=== PATIENT | female | born 1980 | race Caucasian/White ===

== ENCOUNTER 2019-10-13 20:59 | Emergency (ER) | payer MEDICAID, OTHER ==
[~2019-10-13] VITALS: Ht 152.4 cm; Wt 81.6 kg
[2019-10-13 21:05] VITALS: BP 136/80
[2019-10-13] MEDS ORDERED: LORazepam 2 MG/ML VIAL IM ONE (21:30)
[2019-10-13 22:20] VITALS: BP 120/71
== END 2019-10-13 22:21 | disposition home or self-care (01) ==
LOC: MED 20:59
DX: F41.1 Generalized anxiety disorder (principal); I10 Essential (primary) hypertension
CPT/HCPCS: 93005; 96372; 99283; J2060

== ENCOUNTER 2019-11-07 22:02 | Emergency (ER) | payer OTHER ==
[~2019-11-07] VITALS: Ht 152.4 cm; Wt 83.9 kg
[2019-11-07 22:13] VITALS: BP 114/66
--- NOTE | 2019-11-07 22:20 | NUR ---
39 Y/O FEMALE PRESENTS TO ER WITH C/O LEFT SIDE THROAT AND EAR PAIN X 2DAYS, 8/10 PAIN. DENIES COUGH, N/V/D, SOB, HEADACHE, AFEBRILE. DENIES PHLEGM/SPUTUM EXPULSION/ OR PRODUCTION. LMP 11/02/19. VSS, R/R EQUAL, AND UNLABORED. SIDE RAIL X1, BED IN LOW POSITION, WILL CONTINUE TO MONITOR. HTN NKDA
--- NOTE | 2019-11-07 22:35 | NUR ---
PT TAKEN TO BED 12
[2019-11-07] MEDS ORDERED: ACETAMINOPHEN EXTRA STRENGTH 500 MG TAB PO ONE (22:50)
[2019-11-07 23:30] LABS: APPEARANCE,URINE CLEAR (CLEAR); BILIRUBIN,URINE NEGATIVE (NEGATIVE); BLOOD, URINE NEGATIVE (NEGATIVE); COLOR,URINE YELLOW (YELLOW); LEUKOCYTE ESTERASE ,URINE NEGATIVE (NEGATIVE); NITRITE, URINE NEGATIVE (NEGATIVE); UGLUCOSE NEGATIVE (NEGATIVE)
--- NOTE | 2019-11-07 23:42 | NUR ---
Dr. Thomas examining patient.
[2019-11-08 00:20] VITALS: BP 120/62
--- NOTE | 2019-11-08 00:20 | NUR ---
Patient discharged with v/s stable. Written and verbal after care instructions given and explained. Patient alert, oriented and verbalized understanding of instructions. Ambulatory with steady gait. All questions addressed prior to discharge. ID band removed. Patient advised to follow up with PMD. Rx of PREDNISONE, ATIVAN, AMLODIPINE given. Patient educated on indication of medication including possible reaction and side effects. Opportunity to ask questions provided and answered.
== END 2019-11-08 00:20 | disposition home or self-care (01) ==
LOC: MED 22:02
DX: J03.90 Acute tonsillitis, unspecified (principal); M54.6 Pain in thoracic spine; I10 Essential (primary) hypertension
CPT/HCPCS: 81003; 81025; 87081; 99283

== ENCOUNTER 2019-11-23 19:16 | Emergency (ER) | payer OTHER ==
[~2019-11-23] VITALS: Ht 152.4 cm; Wt 82.6 kg
[2019-11-23 19:22] VITALS: BP 124/65
--- NOTE | 2019-11-23 19:28 | NUR ---
AMBULATED TO BED 6 WITH STEADY GAIT.
--- NOTE | 2019-11-23 19:52 | NUR ---
Pt to ED 06 with c/o nonradiating, substernal chest pain. Pt attached to monitor with NSR noted, ED MD at bedside, EKG complete. Pt AAOx4, lungs CTA, ABD soft nontender with normoactive bowel sounds x 4, pt denies any N/V/D at this time. Skin warm, clean and dry. Will continue to monitor.
[2019-11-23 20:21] LABS: BASOPHILS % (AUTO) 0.6 % (0.0-2.0); EOSINOPHILS % (AUTO) 26.2 % (0.0-4.0); HEMATOCRIT 37.2 % (36-48); HEMOGLOBIN 12.8 g/dL (12.0-16.0); LYMPHOCYTES % (AUTO) 25.5 % (20.5-51.1); MEAN CORPUSCULAR HEMOGLOBIN 32 pg (27-31); MEAN CORPUSCULAR HGB CONC 34 g/dL (33-37); MEAN CORPUSCULAR VOLUME 93.6 fL (80-94); MONOCYTES # (AUTO) 0.5 K/uL (0.8-1.0); MONOCYTES % (AUTO) 6.1 % (1.7-9.3); NEUTROPHILS # (AUTO) 3.2 K/uL (1.8-7.7); NEUTROPHILS % (AUTO) 41.6 % (42.2-75.2); PLATELET COUNT (AUTO) 169 K/uL (140-450); RED BLOOD CELL COUNT(AUTO) 3.98 MIL/uL (4.20-5.40); RED CELL DISTRIBUTION WIDTH 12.2 % (11.6-13.7); WHITE BLOOD COUNT (AUTO) 7.8 K/uL (4.8-10.8)
[2019-11-23 20:34] LABS: ALBUMIN 3.6 g/dL (3.4-5.0); ANION GAP 13.1 (8-16); CARBON DIOXIDE 27.3 mmol/L (21-32); CREATININE 0.7 mg/dL (0.6-1.3); POTASSIUM 3.4 mmol/L (3.5-5.1); TOTAL BILIRUBIN 0.9 mg/dL (0.0-1.0)
[2019-11-23 21:54] VITALS: BP 132/56
== END 2019-11-23 21:45 | disposition home or self-care (01) ==
LOC: MED 19:16
DX: R07.89 Other chest pain (principal)
CPT/HCPCS: 36415; 71045; 80053; 83690; 83880; 84484; 85025; 93005; 99285

== ENCOUNTER 2019-12-15 16:01 | Emergency (ER) | payer OTHER ==
[~2019-12-15] VITALS: Ht 152.4 cm; Wt 80.3 kg
[2019-12-15 16:02] VITALS: BP 124/88
--- NOTE | 2019-12-15 16:11 | NUR ---
PTIENT AMBULATED TO BED 6.
--- NOTE | 2019-12-15 16:24 | NUR ---
TERESA MCGOWAN EVALUATING PT AT BEDSIDE.
[2019-12-15] MEDS ORDERED: LORazepam 2 MG/ML VIAL IM ONE (16:35)
--- NOTE | 2019-12-15 16:54 | NUR ---
39 Y/O FEMALE C/O CHEST PAIN, BILAT ARM NUMBNESS, ANXIETY X4 DAYS. PT HAS BEEN TAKING CLONAZEPAM 1MG EVERY NIGHT, BUT IS STILL VERY ANXIOUS. CHEST PAIN IS A PRESSURE/ HEAVINESS 5/10 PAIN. DENIES ANY SOB/ COUGH/ FEVER/ CHILLS. PMH: HTN, ANXIETY PMH
[2019-12-15 17:21] VITALS: BP 124/88
--- NOTE | 2019-12-15 17:21 | NUR ---
Patient discharged with v/s stable. Written and verbal after care instructions given and explained. Patient alert, oriented and verbalized understanding of instructions. Ambulatory with steady gait. All questions addressed prior to discharge. ID band removed. Patient advised to follow up with PMD. Rx of BACTRIM, HYDROXYZINE HYDROCHLORIDE given. Patient educated on indication of medication including possible reaction and side effects. Opportunity to ask questions provided and answered.
== END 2019-12-15 17:21 | disposition home or self-care (01) ==
LOC: MED 16:01
DX: F41.9 Anxiety disorder, unspecified (principal); N39.0 Urinary tract infection, site not specified; I10 Essential (primary) hypertension; Z98.890 Other specified postprocedural states
CPT/HCPCS: 81002; 81025; 93005; 96372; 99283; J2060

== ENCOUNTER 2019-12-20 17:27 | Emergency (ER) | payer OTHER ==
[~2019-12-20] VITALS: Ht 152.4 cm; Wt 81.2 kg
[2019-12-20 17:34] VITALS: BP 141/87
--- NOTE | 2019-12-20 18:15 | NUR ---
C/O ANXIETY X 4 DAYS. PT REPORTS TAKING TAKING LORAZEPAM AND ATARAX BUT ANXIETY HAS BEEN WORSENING. VS STABLE. PT AMBULATORY WITH STEADY GAIT.
[2019-12-20] MEDS ORDERED: LORazepam 2 MG/ML VIAL IM ONE (18:20)
--- NOTE | 2019-12-20 18:27 | NUR ---
ATIVAN IM ADMINISTERED. PT TOLERATED WELL
[2019-12-20 19:50] VITALS: BP 148/94
== END 2019-12-20 19:50 | disposition home or self-care (01) ==
LOC: MED 17:27
DX: F41.9 Anxiety disorder, unspecified (principal); I10 Essential (primary) hypertension
CPT/HCPCS: 81002; 93005; 96372; 99283; J2060

== ENCOUNTER 2019-12-30 19:41 | Emergency (ER) | payer OTHER ==
[~2019-12-30] VITALS: Ht 152.4 cm; Wt 80.3 kg
[2019-12-30 19:46] VITALS: BP 167/112
[2019-12-30] MEDS: KETOROLAC 30 MG/ML VIAL IM ONE (20:32)
[2019-12-30 21:25] VITALS: BP 167/112
== END 2019-12-30 21:25 | disposition home or self-care (01) ==
LOC: MED 19:41
DX: M94.0 Chondrocostal junction syndrome [Tietze] (principal); M54.6 Pain in thoracic spine; F41.9 Anxiety disorder, unspecified; I10 Essential (primary) hypertension; Z98.890 Other specified postprocedural states
CPT/HCPCS: 71045; 93005; 96372; 99283; J1885; Q0092

== ENCOUNTER 2020-01-01 11:56 | Emergency (ER) | payer OTHER ==
[~2020-01-01] VITALS: Ht 152.4 cm; Wt 85.7 kg
[2020-01-01 12:07] VITALS: BP 101/60
--- NOTE | 2020-01-01 12:14 | NUR ---
PT AMB TO BED 4.
[2020-01-01] MEDS ORDERED: NACL 0.9% 1,000 ML IV ONE (12:30)
[2020-01-01] MEDS ORDERED: KETOROLAC 30 MG/ML VIAL IVP ONE (12:30)
[2020-01-01] MEDS ORDERED: ONDANSETRON 4 MG/2 ML VIAL IVP ONE (12:30)
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
[2020-01-01 13:33] LABS: BASOPHILS % (AUTO) 0.4 % (0.0-2.0); EOSINOPHILS # (AUTO) 0.1 K/uL (0-0.4); EOSINOPHILS % (AUTO) 3.4 % (0.0-4.0); HEMATOCRIT 38.3 % (36-48); HEMOGLOBIN 13.1 g/dL (12.0-16.0); LYMPHOCYTES % (AUTO) 48.4 % (20.5-51.1); MEAN CORPUSCULAR HEMOGLOBIN 32 pg (27-31); MEAN CORPUSCULAR HGB CONC 34 g/dL (33-37); MONOCYTES # (AUTO) 0.3 K/uL (0.8-1.0); MONOCYTES % (AUTO) 8.2 % (1.7-9.3); NEUTROPHILS # (AUTO) 1.7 K/uL (1.8-7.7); NEUTROPHILS % (AUTO) 39.6 % (42.2-75.2); PLATELET COUNT (AUTO) 162 K/uL (140-450); RED BLOOD CELL COUNT(AUTO) 4.12 MIL/uL (4.20-5.40); RED CELL DISTRIBUTION WIDTH 11.9 % (11.6-13.7); WHITE BLOOD COUNT (AUTO) 4.2 K/uL (4.8-10.8)
[2020-01-01 13:52] LABS: CARBON DIOXIDE 22.6 mmol/L (21-32); CREATININE 0.6 mg/dL (0.6-1.3); POTASSIUM 3.6 mmol/L (3.5-5.1)
[2020-01-01 14:45] VITALS: BP 110/69
--- NOTE | 2020-01-01 14:45 | NUR ---
Patient discharged with v/s stable. Written and verbal after care instructions given and explained. Patient verbalized understanding. Ambulatory with steady gait. All questions addressed prior to discharge. Advised to follow up with PMD.
--- NOTE | 2020-01-04 08:52 | NUR ---
LATE ENTRY-CONFIRMED WITH RN NS INFUSION COMPLETED AT 1417 01/01/20.
== END 2020-01-01 14:45 | disposition home or self-care (01) ==
LOC: MED 11:56 → CANBEDREQ 12:24 → MED 14:45
DX: R09.1 Pleurisy (principal); R93.89 Abnormal findings on diagnostic imaging of other specified body structures; I10 Essential (primary) hypertension; F41.9 Anxiety disorder, unspecified; Z98.890 Other specified postprocedural states
CPT/HCPCS: 36415; 71045; 80048; 81002; 81025; 84484; 85025; 85379; 93005; 96361; 96374; 96375; 99285; J1885; J2405; J7030; Q0092

== ENCOUNTER 2020-01-02 22:10 | Emergency (ER) | payer OTHER ==
[~2020-01-02] VITALS: Ht 157.5 cm; Wt 73.5 kg
[2020-01-02 22:25] VITALS: BP 147/102
--- NOTE | 2020-01-02 22:30 | NUR ---
ambulated to bed 12 with steady gait.
--- NOTE | 2020-01-02 22:35 | NUR ---
39 Female presenting with c/o lt shoulder pain that is radiating to lt wall region of chest and back that started x 3 days. seen multiple times at other hospitals for the same cc. pt seen here yesterday. states " this feels like anxiety" . no other s/sx reported. denies any injury or trauma. awaiting MSE. PMH:ANXIETY RX:LORAZEPAM nka
--- NOTE | 2020-01-02 22:40 | NUR ---
Dr. Perez assessing pt.
[2020-01-02 23:20] VITALS: BP 138/98
--- NOTE | 2020-01-02 23:20 | NUR ---
Patient discharged with v/s stable. Written and verbal after care instructions given and explained. Patient alert, oriented and verbalized understanding of instructions. Ambulatory with steady gait. All questions addressed prior to discharge. ID band removed. Patient advised to follow up with PMD. Rx of ZOFRAN, ATARAX given. Patient educated on indication of medication including possible reaction and side effects. Opportunity to ask questions provided and answered.
== END 2020-01-02 23:20 | disposition home or self-care (01) ==
LOC: MED 22:10
DX: F41.9 Anxiety disorder, unspecified (principal); R07.89 Other chest pain
CPT/HCPCS: 99283

== ENCOUNTER 2020-02-27 22:10 | Emergency (ER) | payer OTHER ==
[~2020-02-27] VITALS: Ht 152.4 cm; Wt 82.1 kg
[2020-02-27 22:10] VITALS: BP 149/89
--- NOTE | 2020-02-27 22:22 | NUR ---
PT AMBULATED TO ER BED 8 W/ STEADY GAIT.
[2020-02-27] MEDS ORDERED: IBUPROFEN 800 MG TAB PO ONE (22:40)
[2020-02-27] MEDS ORDERED: diphenhydrAMINE 50 MG CAP PO ONE (22:40)
--- NOTE | 2020-02-27 22:40 | NUR ---
X-Ray at bedside.
--- NOTE | 2020-02-27 23:00 | NUR ---
PT IN BED LYING ON GURNEY, SHE IS AOX4 ON ROOM AIR. PT REPIRATIONS EVEN AND UNLABORED. PT EXPLAINED THAT SHE HAD TAKEN AND ANTI ANXIETY MEDICTION AND A MUSCLE RELAXANT BUT SHE DOESNT KNOW THE NAMES OF THE PILLS. PT PLACED ON TELEMONITOR WITH NOTED NSR V/S FOLLOWS: T 98.6 P 73 R 18 B/P 147/87 02 98% ON ROOM AIR.
[2020-02-28] VITALS: BP 147/87
--- NOTE | 2020-02-28 00:10 | NUR ---
PT GIVEN ORDERED BENADRYL AND MOTRIN. PURPOSES AND SIDE EFFECTS EXPLAINED, PT VERBELIZED UNDERSTANDING.
--- NOTE | 2020-02-28 00:58 | NUR ---
Patient discharged with v/s stable. Written and verbal after care instructions given and explained. Patient alert, oriented and verbalized understanding of instructions. Ambulatory with steady gait. All questions addressed prior to discharge. ID band removed. Patient advised to follow up with PMD. Rx of hydroxyzine hcl given. Patient educated on indication of medication including possible reaction and side effects. Opportunity to ask questions provided and answered.
== END 2020-02-28 00:58 | disposition home or self-care (01) ==
LOC: MED 22:10
DX: R07.89 Other chest pain (principal); I10 Essential (primary) hypertension; F41.9 Anxiety disorder, unspecified
CPT/HCPCS: 71045; 93005; 99283; Q0092; Q0163

== ENCOUNTER 2020-08-24 20:09 | Emergency (ER) | payer OTHER ==
[~2020-08-24] VITALS: Ht 152.4 cm; Wt 82.1 kg
[2020-08-24 20:27] VITALS: BP 128/89
[2020-08-24] MEDS ORDERED: DEXAMETHASONE 10 MG/ML VIAL IM ONE (21:05)
[2020-08-24] MEDS ORDERED: [UNRECOGNIZED DRUG - CODE] PO (21:10)
[2020-08-24] MEDS ORDERED: KEFSUS PO (21:10)
[2020-08-24 21:36] VITALS: BP 122/86
== END 2020-08-24 21:36 | disposition home or self-care (01) ==
LOC: MED 20:09
DX: J02.9 Acute pharyngitis, unspecified (principal); G89.18 Other acute postprocedural pain; I10 Essential (primary) hypertension; Z79.899 Other long term (current) drug therapy
CPT/HCPCS: 96372; 99283; J1100

== ENCOUNTER 2020-08-26 21:02 | Emergency (ER) | payer OTHER ==
[~2020-08-26] VITALS: Ht 152.4 cm; Wt 82.1 kg
[~2020-08-26 21:02] MED LIST: KEFSUS PO; [UNRECOGNIZED DRUG - CODE] PO
[2020-08-26 21:05] VITALS: BP 132/102
--- NOTE | 2020-08-26 21:05 | NUR ---
TO BED AMBULATORY
--- NOTE | 2020-08-26 21:26 | NUR ---
40 y/o FEMALE C/O SORETHROAT, BOTH EAR PAIN, FOR 2 DAYS. PT SATES 10/10 PAIN. WHITE PATCHES NOTED ON POSTERIOR THROAT. LUNG SOUNDS CLEAR. VSS. MEDHX: HTN NKA
--- NOTE | 2020-08-26 22:08 | NUR ---
DR COOPER AT BEDSIDE EXAMINING PT
[2020-08-26] MEDS ORDERED: ONDANSETRON 4 MG ODT PO ONE (22:15)
[2020-08-26] MEDS ORDERED: MORPHINE SULFATE 4 MG/ML SYR IM ONE (22:15)
[2020-08-26] MEDS ORDERED: ONDA-24 SL (22:45)
[2020-08-26] MEDS ORDERED: ACET-8386 PO (22:45)
[2020-08-26 22:56] VITALS: BP 132/102
--- NOTE | 2020-08-26 22:56 | NUR ---
Patient discharged with v/s stable. Written and verbal after care instructions given and explained. Patient alert, oriented and verbalized understanding of instructions. Ambulatory with steady gait. All questions addressed prior to discharge. ID band removed. Patient advised to follow up with PMD. Rx of HYDROCODONE-ACETAMINOPHEN AND ZOFRAN given. Patient educated on indication of medication including possible reaction and side effects. Opportunity to ask questions provided and answered.
== END 2020-08-26 22:56 | disposition home or self-care (01) ==
LOC: MED 21:02
DX: G89.18 Other acute postprocedural pain (principal); R07.0 Pain in throat; I10 Essential (primary) hypertension
CPT/HCPCS: 96372; 99283; J2270; Q0162

== ENCOUNTER 2020-09-26 13:24 | Emergency (ER) | payer OTHER ==
[~2020-09-26] VITALS: Ht 152.4 cm; Wt 81.6 kg
[~2020-09-26 13:24] MED LIST changes: +ACET-8386 PO; +ONDA-24 SL
[2020-09-26 13:34] VITALS: BP 126/85
--- NOTE | 2020-09-26 14:08 | NUR ---
40 YEAR OLD FEMALE COMPLAINS OF BILATERAL HANDS AND ANKLE SWELLING X 4 DAYS. PT ALSO COMPLAINS OF SWELLING TO RIGHT SIDE OF NECK BUT WITHOUT SOB. PT PULSES +2 BILATERAL ALL EXTREMITIES, CAP REFILL <3. PT AOX4, BREATHING EVEN AND UNLABORED, SKIN WARM AND DRY. BED IN LOWEST POSITION, LOCKED, BED RAIL UPX1. PMH - HTN, VERTIGO ALLERGIES - NORCO
[2020-09-26] MEDS ORDERED: KETOROLAC 30 MG/ML VIAL IM ONE (14:20)
[2020-09-26 14:33] LABS: BASOPHILS # (AUTO) 0.1 K/uL (0.00-0.22); BASOPHILS % (AUTO) 0.4 % (0.0-2.0); EOSINOPHILS % (AUTO) 0.1 % (0.0-4.0); HEMATOCRIT 38.1 % (36-48); HEMOGLOBIN 13.5 g/dL (12.0-16.0); LYMPHOCYTES # (AUTO) 1.5 K/uL (2.5-16.5); LYMPHOCYTES % (AUTO) 12.5 % (20.5-51.1); MEAN CORPUSCULAR HEMOGLOBIN 32 pg (27-31); MEAN CORPUSCULAR HGB CONC 36 g/dL (33-37); MEAN CORPUSCULAR VOLUME 90.6 fL (80-94); MONOCYTES # (AUTO) 0.9 K/uL (0.8-1.0); MONOCYTES % (AUTO) 7.4 % (1.7-9.3); NEUTROPHILS # (AUTO) 9.8 K/uL (1.8-7.7); NEUTROPHILS % (AUTO) 79.6 % (42.2-75.2); PLATELET COUNT (AUTO) 189 K/uL (140-450); RED CELL DISTRIBUTION WIDTH 12.7 % (11.6-13.7); WHITE BLOOD COUNT (AUTO) 12.3 K/uL (4.8-10.8)
[2020-09-26 14:44] LABS: CREATININE 0.8 mg/dL (0.6-1.3)
[2020-09-26 14:50] LABS: ALBUMIN 3.8 g/dL (3.4-5.0); TOTAL BILIRUBIN 0.6 mg/dL (0.0-1.0)
--- NOTE | 2020-09-26 15:18 | NUR ---
DR CABRERA AT BEDSIDE TALKING TO PATIENT
--- NOTE | 2020-09-26 15:20 | NUR ---
Patient discharged with v/s stable. Written and verbal after care instructions about peripheral edema given and explained. Patient verbalized understanding. Ambulatory with steady gait. All questions addressed prior to discharge. Advised to follow up with PMD.
[2020-09-26 15:24] VITALS: BP 126/85
== END 2020-09-26 15:20 | disposition home or self-care (01) ==
LOC: MED 13:24
DX: R60.9 Edema, unspecified (principal); R07.89 Other chest pain; I10 Essential (primary) hypertension; Z79.899 Other long term (current) drug therapy; Z98.890 Other specified postprocedural states
CPT/HCPCS: 36415; 71045; 80053; 83690; 84484; 85025; 93005; 96372; 99285; J1885

== ENCOUNTER 2020-12-08 22:56 | Emergency (ER) | payer OTHER ==
[~2020-12-08] VITALS: Ht 152.4 cm; Wt 84.4 kg
[2020-12-08 23:07] VITALS: BP 114/77
[2020-12-08] MEDS ORDERED: ASPIRIN 81 MG TAB.CHEW PO ONE (23:30)
--- NOTE | 2020-12-08 23:30 | NUR ---
AMBULATED TO ER BED 5
[2020-12-08 23:42] LABS: BASOPHILS # (AUTO) 0.1 K/uL (0.00-0.22); BASOPHILS % (AUTO) 0.7 % (0.0-2.0); EOSINOPHILS # (AUTO) 0.1 K/uL (0-0.4); EOSINOPHILS % (AUTO) 1.9 % (0.0-4.0); HEMATOCRIT 43.8 % (36-48); HEMOGLOBIN 15.3 g/dL (12.0-16.0); LYMPHOCYTES # (AUTO) 2.7 K/uL (2.5-16.5); LYMPHOCYTES % (AUTO) 39.1 % (20.5-51.1); MEAN CORPUSCULAR HEMOGLOBIN 32 pg (27-31); MEAN CORPUSCULAR HGB CONC 35 g/dL (33-37); MEAN CORPUSCULAR VOLUME 90.5 fL (80-94); MONOCYTES # (AUTO) 0.5 K/uL (0.8-1.0); MONOCYTES % (AUTO) 6.4 % (1.7-9.3); NEUTROPHILS # (AUTO) 3.6 K/uL (1.8-7.7); NEUTROPHILS % (AUTO) 51.9 % (42.2-75.2); PLATELET COUNT (AUTO) 191 K/uL (140-450); RED BLOOD CELL COUNT(AUTO) 4.83 MIL/uL (4.20-5.40)
--- NOTE | 2020-12-09 | NUR ---
PT. IS A 40 Y/O FEMALE THAT CAME INTO ED WITH C/O OF BACK PAIN. PT. STATES HER BACK PAIN STARTED 5 DAYS AGO AND STATES THAT THE PAIN IS MOSTLY ON HER LEFT SIDE. DENIES N/V/D. PT. RATES PAIN 8/10 ON THE PAIN SCALE AT THIS TIME. PT. ALSO ADMITS FALLING AT HER HOME 2 WEEKS AGO. SKIN IS PINK/WARM/DRY; AAOX4 WITH EVEN AND STEADY GAIT; HR EVEN AND REGULAR; PT DENIES ANY FEVER, CP, SOB, OR COUGH AT THIS TIME; VSS; PATIENT POSITIONED FOR COMFORT; HOB ELEVATED; BEDRAILS UP X2; BED DOWN. ER MD MADE AWARE OF PT STATUS.
[2020-12-09 00:12] LABS: ALBUMIN 4.2 g/dL (3.4-5.0); ANION GAP 12.5 (8-16); CARBON DIOXIDE 28.7 mmol/L (21-32); CREATININE 0.9 mg/dL (0.6-1.3); POTASSIUM 3.2 mmol/L (3.5-5.1); TOTAL BILIRUBIN 0.8 mg/dL (0.0-1.0)
[2020-12-09 00:13] LABS: PROTHROMBIN TIME 9.8 secs (10.8-13.4)
[2020-12-09] MEDS ORDERED: POTASSIUM CHLORIDE 10 MEQ TABER PO ONE (00:35)
[2020-12-09] MEDS ORDERED: ASPIRIN 81 MG TAB.CHEW ONE (00:42)
--- NOTE | 2020-12-09 01:00 | NUR ---
PT. LAYING IN BED, VOICES NO COMPLAINTS AT THIS TIME. AWAITING DISPOSITION
[2020-12-09 03:13] VITALS: BP 114/77
== END 2020-12-09 03:13 | disposition home or self-care (01) ==
LOC: MED 22:56
DX: R07.89 Other chest pain (principal)
CPT/HCPCS: 36415; 71045; 80053; 81002; 81025; 83880; 84484; 85025; 85610; 93005; 99285

== ENCOUNTER 2021-01-09 18:19 | Emergency (ER) | payer OTHER ==
[~2021-01-09] VITALS: Ht 152.4 cm; Wt 83.5 kg
[2021-01-09 18:51] VITALS: BP 133/83
--- NOTE | 2021-01-09 19:32 | NUR ---
PT IN TRIAGE FOR EKG BY MACK JIMENES.
[2021-01-09 19:47] LABS: BASOPHILS % (AUTO) 0.7 % (0.0-2.0); EOSINOPHILS # (AUTO) 0.1 K/uL (0-0.4); EOSINOPHILS % (AUTO) 1.6 % (0.0-4.0); HEMATOCRIT 40.4 % (36-48); HEMOGLOBIN 14.1 g/dL (12.0-16.0); LYMPHOCYTES # (AUTO) 2.2 K/uL (2.5-16.5); LYMPHOCYTES % (AUTO) 31.9 % (20.5-51.1); MEAN CORPUSCULAR HEMOGLOBIN 32 pg (27-31); MEAN CORPUSCULAR HGB CONC 35 g/dL (33-37); MEAN CORPUSCULAR VOLUME 91.2 fL (80-94); MONOCYTES # (AUTO) 0.6 K/uL (0.8-1.0); MONOCYTES % (AUTO) 8.9 % (1.7-9.3); NEUTROPHILS # (AUTO) 3.9 K/uL (1.8-7.7); NEUTROPHILS % (AUTO) 56.9 % (42.2-75.2); PLATELET COUNT (AUTO) 215 K/uL (140-450); RED BLOOD CELL COUNT(AUTO) 4.42 MIL/uL (4.20-5.40); RED CELL DISTRIBUTION WIDTH 12.5 % (11.6-13.7); WHITE BLOOD COUNT (AUTO) 6.8 K/uL (4.8-10.8)
[2021-01-09 19:53] LABS: ANION GAP 13.6 (8-16); CARBON DIOXIDE 25.4 mmol/L (21-32); CREATININE 0.7 mg/dL (0.6-1.3)
--- NOTE | 2021-01-09 21:30 | NUR ---
PT BIB SELF FOR C/C LEFT CHEST PAIN THAT IS NONRADIATING X 3 DAYS. ALSO C/O NECK/THROAT PAIN TO RIGHT SIDE. NO NOTED EDEMA. CAP REFILL < 3 SEC. SPEAKING IN FULL, COMPLETE SENTENCES. AMBULATORY. A & O X4. DENIES N/V/D, FEVER, CHILLS, SOB. PAIN WAS UNPROVOKED. REPORTING HX OF ANXIETY. MED HX: HTN, ANXIETY ALLREGIES: NKA
--- NOTE | 2021-01-09 22:34 | NUR ---
LAB AT [facility].
--- NOTE | 2021-01-09 22:48 | NUR ---
PT AMBULATED TO TRIAGE ROOM FOR EKG.
--- NOTE | 2021-01-09 23:18 | NUR ---
GELY DISCUSSING RESULTS WITH PT IN [facility].
[2021-01-09 23:20] VITALS: BP 112/83
--- NOTE | 2021-01-09 23:20 | NUR ---
Patient discharged with v/s stable. Written and verbal after care instructions given and explained. Patient verbalized understanding. Ambulatory with to car. All questions addressed prior to discharge. Advised to follow up with PMD.
== END 2021-01-09 23:20 | disposition home or self-care (01) ==
LOC: MED 18:19
DX: R07.9 Chest pain, unspecified (principal); I10 Essential (primary) hypertension
CPT/HCPCS: 36415; 71045; 80048; 84484; 85025; 93005; 99285

== ENCOUNTER 2021-04-16 07:20 | Emergency (ER) | payer OTHER ==
[~2021-04-16] VITALS: Ht 154.9 cm; Wt 82.2 kg
[~2021-04-16 07:20] MED LIST changes: +ONDA-188 SL; -ONDA-24 SL
[2021-04-16 07:44] VITALS: BP 123/85
[2021-04-16 10:30] LABS: BASOPHILS % (AUTO) 0.5 % (0.0-2.0); EOSINOPHILS % (AUTO) 0.6 % (0.0-4.0); HEMATOCRIT 42.4 % (36-48); HEMOGLOBIN 14.8 g/dL (12.0-16.0); LYMPHOCYTES # (AUTO) 1.3 K/uL (2.5-16.5); LYMPHOCYTES % (AUTO) 23.6 % (20.5-51.1); MEAN CORPUSCULAR HEMOGLOBIN 32 pg (27-31); MEAN CORPUSCULAR HGB CONC 35 g/dL (33-37); MEAN CORPUSCULAR VOLUME 92.6 fL (80-94); MONOCYTES # (AUTO) 0.3 K/uL (0.8-1.0); NEUTROPHILS # (AUTO) 3.7 K/uL (1.8-7.7); NEUTROPHILS % (AUTO) 69.3 % (42.2-75.2); PLATELET COUNT (AUTO) 183 K/uL (140-450); RED BLOOD CELL COUNT(AUTO) 4.57 MIL/uL (4.20-5.40); RED CELL DISTRIBUTION WIDTH 12.7 % (11.6-13.7); WHITE BLOOD COUNT (AUTO) 5.4 K/uL (4.8-10.8)
[2021-04-16 10:53] LABS: ALBUMIN 4.1 g/dL (3.4-5.0); BILIRUBIN,DIRECT 0.2 mg/dL (0.0-0.3)
[2021-04-16 11:00] LABS: CARBON DIOXIDE 25.6 mmol/L (21-32); CREATININE 0.6 mg/dL (0.6-1.3); POTASSIUM 3.6 mmol/L (3.5-5.1)
[2021-04-16] MEDS: ACETAMINOPHEN EXTRA STRENGTH 500 MG TAB PO ONE (11:26)
[2021-04-16 11:35] VITALS: BP 114/66
== END 2021-04-16 11:35 | disposition home or self-care (01) ==
LOC: MED 07:20
DX: M25.512 Pain in left shoulder (principal); I10 Essential (primary) hypertension; X58.XXXA Exposure to other specified factors, initial encounter; Y93.89 Activity, other specified; Y92.89 Other specified places as the place of occurrence of the external cause; Y99.8 Other external cause status
CPT/HCPCS: 36415; 71045; 73030; 80048; 80076; 81002; 81025; 83690; 84484; 85025; 93005; 99285; Q0092

== ENCOUNTER 2022-04-25 06:11 | Emergency (ER) | payer OTHER ==
[~2022-04-25] VITALS: Ht 152.4 cm; Wt 79.8 kg
[~2022-04-25 06:11] MED LIST changes: -ACET-8386 PO; +ACET-8905 PO
[2022-04-25 06:23] VITALS: BP 120/79
--- NOTE | 2022-04-25 06:23 | NUR ---
TO BED AMBULATORY
--- NOTE | 2022-04-25 06:40 | NUR ---
Dr. Aguilar examining patient.
--- NOTE | 2022-04-25 06:45 | NUR ---
Patient resting in bed, A/Ox4, chest rise and fall symmetrical, no s/s of distress, mother at bedside.
[2022-04-25] MEDS ORDERED: KETOROLAC 30 MG/ML VIAL IM ONE (07:05)
--- NOTE | 2022-04-25 07:18 | NUR ---
Received report from BEBETO Sanchez. Assumed care at this time.
--- NOTE | 2022-04-25 07:27 | NUR ---
Change of shift report given to AM shift nurse Indio TATE. AM shift nurse Indio RN verbalized understanding of report, no further questions.
[2022-04-25 07:29] LABS: ALBUMIN 3.6 g/dL (3.4-5.0); ANION GAP 11.7 (8-16); CARBON DIOXIDE 28.3 mmol/L (21-32); CREATININE 0.7 mg/dL (0.6-1.3); TOTAL BILIRUBIN 0.4 mg/dL (0.0-1.0)
[2022-04-25 07:32] LABS: EOSINOPHILS # (AUTO) 0.1 K/uL (0-0.4); HEMOGLOBIN 13.9 g/dL (12.0-16.0); LYMPHOCYTES # (AUTO) 2.1 K/uL (2.5-16.5); MEAN CORPUSCULAR HGB CONC 35 g/dL (33-37); MONOCYTES # (AUTO) 0.5 K/uL (0.8-1.0); MONOCYTES % (AUTO) 7.5 % (1.7-9.3); RED BLOOD CELL COUNT(AUTO) 4.41 MIL/uL (4.20-5.40); WHITE BLOOD COUNT (AUTO) 7.2 K/uL (4.8-10.8)
[2022-04-25 07:34] LABS: LIPASE 211 U/L (73-393)
[2022-04-25 08:03] LABS: BASOPHILS % (AUTO) 0.5 % (0.0-2.0); EOSINOPHILS % (AUTO) 1.6 % (0.0-4.0); HEMATOCRIT 39.9 % (36-48); LYMPHOCYTES % (AUTO) 29.6 % (20.5-51.1); MEAN CORPUSCULAR HEMOGLOBIN 32 pg (27-31); MEAN CORPUSCULAR VOLUME 90.4 fL (80-94); NEUTROPHILS # (AUTO) 4.4 K/uL (1.8-7.7); NEUTROPHILS % (AUTO) 60.8 % (42.2-75.2); PLATELET COUNT (AUTO) 214 K/uL (140-450); RED CELL DISTRIBUTION WIDTH 12.6 % (11.6-13.7)
[2022-04-25] MEDS ORDERED: MECL-303 PO (08:16)
[2022-04-25] MEDS ORDERED: IBUP-2213 PO (08:16)
[2022-04-25 08:45] VITALS: BP 127/81
--- NOTE | 2022-04-25 08:45 | NUR ---
Patient discharged with v/s stable. Written and verbal after care instructions given and explained. Patient alert, oriented and verbalized understanding of instructions. Ambulatory with steady gait. All questions addressed prior to discharge. ID band removed. Patient advised to follow up with PMD. Rx of Meclizine and Ibuprofen given. Patient educated on indication of medication including possible reaction and side effects. Opportunity to ask questions provided and answered.
== END 2022-04-25 08:45 | disposition home or self-care (01) ==
LOC: MED 06:11
DX: R42 Dizziness and giddiness (principal); R07.9 Chest pain, unspecified; I10 Essential (primary) hypertension; Z79.899 Other long term (current) drug therapy
CPT/HCPCS: 36415; 70450; 71045; 80053; 83690; 83880; 84484; 85025; 93005; 96372; 99285; J1885

== ENCOUNTER 2022-05-15 22:57 | Emergency (ER) | payer OTHER ==
[~2022-05-15] VITALS: Ht 152.4 cm; Wt 92.1 kg
[~2022-05-15 22:57] MED LIST changes: +IBUP-2213 PO; +MECL-303 PO
[2022-05-15 23:22] VITALS: BP 118/83
--- NOTE | 2022-05-15 23:45 | NUR ---
PT TO 5
[2022-05-16 00:13] LABS: APPEARANCE,URINE CLEAR (CLEAR); BILIRUBIN,URINE NEGATIVE (NEGATIVE); BLOOD, URINE TRACE-I (NEGATIVE); COLOR,URINE YELLOW (YELLOW); LEUKOCYTE ESTERASE ,URINE NEGATIVE (NEGATIVE); NITRITE, URINE NEGATIVE (NEGATIVE); UGLUCOSE NEGATIVE (NEGATIVE)
[2022-05-16] MEDS ORDERED: KETOROLAC 30 MG/ML VIAL IVP ONE (00:25)
--- NOTE | 2022-05-16 00:46 | NUR ---
LAB AT BEDSIDE
--- NOTE | 2022-05-16 00:53 | NUR ---
PT TO CT
[2022-05-16 01:28] LABS: BASOPHILS % (AUTO) 0.7 % (0.0-2.0); EOSINOPHILS # (AUTO) 0.1 K/uL (0-0.4); HEMATOCRIT 37.5 % (36-48); HEMOGLOBIN 13.5 g/dL (12.0-16.0); LYMPHOCYTES # (AUTO) 2.3 K/uL (2.5-16.5); LYMPHOCYTES % (AUTO) 32.9 % (20.5-51.1); MEAN CORPUSCULAR HEMOGLOBIN 32 pg (27-31); MEAN CORPUSCULAR HGB CONC 36 g/dL (33-37); MEAN CORPUSCULAR VOLUME 88.8 fL (80-94); MONOCYTES # (AUTO) 0.5 K/uL (0.8-1.0); MONOCYTES % (AUTO) 7.2 % (1.7-9.3); NEUTROPHILS % (AUTO) 57.2 % (42.2-75.2); PLATELET COUNT (AUTO) 232 K/uL (140-450); RED BLOOD CELL COUNT(AUTO) 4.22 MIL/uL (4.20-5.40); RED CELL DISTRIBUTION WIDTH 12.6 % (11.6-13.7); WHITE BLOOD COUNT (AUTO) 6.9 K/uL (4.8-10.8)
[2022-05-16 01:32] LABS: ALBUMIN 3.9 g/dL (3.4-5.0); ANION GAP 13.3 (8-16); CARBON DIOXIDE 27.4 mmol/L (21-32); CREATININE 0.7 mg/dL (0.6-1.3); POTASSIUM 3.7 mmol/L (3.5-5.1); TOTAL BILIRUBIN 0.5 mg/dL (0.0-1.0)
[2022-05-16 01:45] LABS: RBC,URINE 0-5 /HPF (0-5); WBC,URINE 0-5 /HPF (0-5)
[2022-05-16] MEDS ORDERED: DICYCLOMINE HCL LIQUID 20 MG, ALUMINUM HYD/MAG/SIMETHICONE 30 ML, LIDOCAINE VISCOUS 2% ... PO ONE ×3 (02:45)
[2022-05-16] MEDS ORDERED: DICYCLOMINE HCL LIQUID 10 MG/5 ML UDC ONE (03:10)
[2022-05-16] MEDS ORDERED: ALUMINUM HYD/MAG/SIMETHICONE 30 ML UDC ONE (03:10)
[2022-05-16] MEDS ORDERED: OMEP40EC24 PO (04:05)
[2022-05-16] MEDS ORDERED: IBUP-2213 PO (04:05)
--- NOTE | 2022-05-16 04:12 | NUR ---
IV removed, catheter intact and site benign. Applied folded 4x4 gauze and tape to stop bleeding.
--- NOTE | 2022-05-16 04:15 | NUR ---
Patient discharged. Written and verbal after care instructions given and explained. Patient alert, oriented and verbalized understanding of instructions. Ambulatory with steady gait. All questions addressed prior to discharge. ID band removed. Patient advised to follow up with PMD. Rx of Ibuprofen and Prilosec given. Patient educated on indication of medication including possible reaction and side effects. Opportunity to ask questions provided and answered.
== END 2022-05-16 04:15 | disposition home or self-care (01) ==
LOC: MED 22:57
DX: R10.13 Epigastric pain (principal); I10 Essential (primary) hypertension; Z79.899 Other long term (current) drug therapy; Z98.890 Other specified postprocedural states
CPT/HCPCS: 36415; 74176; 80053; 81001; 81025; 83690; 85025; 96374; 99285; J1885; 99284

== ENCOUNTER 2022-07-23 00:39 | Inpatient (IN) | payer OTHER ==
[~2022-07-23] VITALS: Ht 152.4 cm; Wt 95.3 kg
[~2022-07-23 00:39] MED LIST changes: +OMEP40EC24 PO
[2022-07-23 00:50] VITALS: BP 132/90
--- NOTE | 2022-07-23 01:00 | NUR ---
SEEN AND EXAMINED BY GELY
[2022-07-23] MEDS ORDERED: NITROGLYCERIN 2% 1 GM PKT TP ONE ×2 (01:10→02:17)
[2022-07-23] MEDS ORDERED: ASPIRIN 325 MG TAB PO ONE (01:10)
[2022-07-23] MEDS ORDERED: lisinopriL 20 MG TAB PO ONE (01:10)
[2022-07-23] MEDS ORDERED: MORPHINE SULFATE 4 MG/ML SYR IVP ONE ×2 (01:10→06:10)
[2022-07-23 01:40] LABS: BASOPHILS % (AUTO) 0.5 % (0.0-2.0); EOSINOPHILS # (AUTO) 0.1 K/uL (0-0.4); EOSINOPHILS % (AUTO) 1.8 % (0.0-4.0); HEMATOCRIT 38.5 % (36-48); HEMOGLOBIN 13.4 g/dL (12.0-16.0); LYMPHOCYTES # (AUTO) 2.5 K/uL (2.5-16.5); LYMPHOCYTES % (AUTO) 41.7 % (20.5-51.1); MEAN CORPUSCULAR HEMOGLOBIN 32 pg (27-31); MEAN CORPUSCULAR HGB CONC 35 g/dL (33-37); MEAN CORPUSCULAR VOLUME 91.5 fL (80-94); MONOCYTES # (AUTO) 0.4 K/uL (0.8-1.0); MONOCYTES % (AUTO) 6.2 % (1.7-9.3); NEUTROPHILS % (AUTO) 49.8 % (42.2-75.2); PLATELET COUNT (AUTO) 221 K/uL (140-450); RED BLOOD CELL COUNT(AUTO) 4.21 MIL/uL (4.20-5.40); RED CELL DISTRIBUTION WIDTH 12.1 % (11.6-13.7)
[2022-07-23 02:02] LABS: ALBUMIN 3.7 g/dL (3.4-5.0); ANION GAP 12.7 (8-16); CARBON DIOXIDE 25.7 mmol/L (21-32); CREATININE 0.8 mg/dL (0.6-1.3); POTASSIUM 3.4 mmol/L (3.5-5.1); TOTAL BILIRUBIN 0.6 mg/dL (0.0-1.0)
[2022-07-23] MEDS ORDERED: ASPIRIN 325 MG TAB ONE (02:15)
[2022-07-23] MEDS ORDERED: lisinopriL 20 MG TAB ONE (02:16)
[2022-07-23] MEDS ORDERED: MORPHINE SULFATE 4 MG/ML SYR ONE (02:18)
--- NOTE | 2022-07-23 03:11 | NUR ---
PT TAKEN TO BED 11
--- NOTE | 2022-07-23 03:50 | NUR ---
Patient received on bed lying comfortably and asleep. No acute distress. No signs of pain or discomfort. Respirations even and unlabored.
[2022-07-23] MEDS ORDERED: ACETAMINOPHEN 325 MG TAB PO PRN (05:55)
[2022-07-23] MEDS ORDERED: MORPHINE SULFATE 4 MG/ML SYR IVP PRN (05:55)
[2022-07-23] MEDS ORDERED: HYDROcodone/APAP 5/325 MG 1 TAB TAB PO PRN (05:55)
[2022-07-23] MEDS: NACL 0.9% 1,000 ML IV SCH ×2 (06:34→18:33)
--- NOTE | 2022-07-23 07:45 | NUR ---
ASSUMED PATIENT CARE FOR TRANSFER TO [facility]. PATIENT CARE REPORT GIVEN TO BEBETO WILKINSON. CONTINUITY OF CARE ENDORSED, PATIENT STABLE.
--- NOTE | 2022-07-23 08:20 | NUR ---
RECEIVED REPORT FROM ER NURSE. PT ARRIVED TO [facility] @0815, VIA GURNEY. PT AWAKE, AOX4, ON RM AIR, IV TO RIGHT HAND 22G, NS RUNNING AT 80MLS/HR. PT ORIENTED TO BED MECHANICS, BATHROOM, CALL LIGHT. BED IN LOWEST POSITION, 2 SIDE RAILS UP, CALL LIGHT PLACED WITHIN REACH. PT REPORTS HAVING CHEST PAIN 9/10. PROVIDED NONPHARMACOLOGICAL INTERVENTIONS AND COMFORT MEASURES.
[2022-07-23] MEDS ORDERED: CLON0.5T4 PO (08:30)
[2022-07-23] MEDS ORDERED: ASPI-1822 PO (08:30)
[2022-07-23] MEDS ORDERED: LOSA100T2 PO (08:30)
[2022-07-23] MEDS ORDERED: NITROGLYCERIN 0.4 MG TAB SL PRN (09:15)
[2022-07-23] MEDS: ASPIRIN 81 MG TAB.CHEW PO SCH (10:07)
[2022-07-23] MEDS: ATORVASTATIN 20 MG TAB PO SCH (10:08)
--- NOTE | 2022-07-23 10:10 | NUR ---
PT REPORTS CHEST PAIN 9/10. PROVIDED PRN CHEST PAIN MEDICATION. PT REPORTS PAIN DECREASED. BED IN LOWEST POSITION, CALL LIGHT PLACED WITHIN REACH. WILL CONTINUE WITH CARE.
--- NOTE | 2022-07-23 10:18 | NUR ---
PATIENT HAS BEEN SCREENED AND CATEGORIZED LOW NUTRITION RISK. PATIENT WILL BE SEEN WITHIN 7 DAYS OF ADMISSION. 07/30/[address] LAYO M[address]
[2022-07-23 16:00] VITALS: BP 115/60
--- NOTE | 2022-07-23 18:00 | NUR ---
PT IS PRIMARILY LATVIAN SPEAKING. ROBERTO USED TO TRANSLATE TO PT THROUGHOUT PATIENT CARE. VOYCE: UPON ARRIVING: VALDEMAR #[id number] ADMISSION ASSESSMENT: DESMOND #[id number] ADMISSION ASSESSMENT CONT.: ZINA #[id number]
--- NOTE | 2022-07-23 19:00 | NUR ---
PT IS AWAKE AND RESTING IN BED. NO REPORTS OF PAIN, DISCOMFORT, OR DISTRESS AT THIS TIME. BED IN LOWEST POSITION, 2 SIDE RAILS UP, CALL LIGHT PLACED WITHIN REACH. ENDORSED PT TO NIGHTSHIFT NURSE FOR CONTINUITY OF CARE.
[2022-07-23 20:00] VITALS: BP 122/71
--- NOTE | 2022-07-23 20:19 | NUR ---
PATIENT IN BED WELL RESTED ON ROOM AIR. NO SOB NOTED. NO COMPLAINTS OF PAIN. PATIENT IS ABLE TO COMMUNICATE WITH HER NEEDS. SKIN WARM AND DRY TO THE TOUCH. IVF NS 80 ML/HR INFUSING IN THE RIGHT HAND. CALL LIGHT ON EASY REACH. SAFETY MEASURES IN PLACE. VISITOR AT BEDSIDE.
--- NOTE | 2022-07-23 20:57 | NUR ---
ALL SCHEDULED MEDICATIONS ADMINISTERED
[2022-07-23] MEDS: POLYETHYLENE GLYCOL 17 GM/PKT PO SCH (20:58)
[2022-07-23] MEDS: SENNA 8.6 MG TAB PO SCH (20:58)
[2022-07-23] MEDS ORDERED: clonazePAM 0.5 MG TAB PO SCH (21:00)
--- NOTE | 2022-07-23 23:05 | NUR ---
ASSISTED PATIENT TO THE RESTROOM AND BACK TO BED. PATIENT IS STABLE.
[2022-07-24] VITALS: BP 126/77
[2022-07-24 04:00] VITALS: BP 102/59
[2022-07-24] MEDS: NACL 0.9% 1,000 ML IV SCH (06:55)
--- NOTE | 2022-07-24 07:18 | NUR ---
PATIENT IS STABLE. GAVE REPORT TO DAY SHIFT NURSE FOR CONTINUITY OF CARE.
[2022-07-24 07:53] LABS: ALBUMIN 3.2 g/dL (3.4-5.0); ANION GAP 11.1 (8-16); CARBON DIOXIDE 27.1 mmol/L (21-32); CREATININE 0.7 mg/dL (0.6-1.3); MAGNESIUM 2.1 mg/dL (1.8-2.4); POTASSIUM 4.2 mmol/L (3.5-5.1); TOTAL BILIRUBIN 0.9 mg/dL (0.0-1.0)
[2022-07-24 08:00] VITALS: BP 111/52
[2022-07-24] MEDS ORDERED: ATOR20TA40 PO (08:03)
[2022-07-24] MEDS ORDERED: SENN-74 PO (08:03)
[2022-07-24] MEDS: SENNA 8.6 MG TAB PO SCH (10:07)
[2022-07-24] MEDS: ATORVASTATIN 20 MG TAB PO SCH (10:08)
[2022-07-24] MEDS: ASPIRIN 81 MG TAB.CHEW PO SCH (10:08)
[2022-07-24] MEDS: POLYETHYLENE GLYCOL 17 GM/PKT PO SCH (10:08)
[2022-07-24 11:47] VITALS: BP 111/52
--- NOTE | 2022-07-24 14:18 | NUR ---
CALLED DR STREET'S OFFICE LOCATED AT [address] [facility] [id number]. SPOKE WITH GILA WHO HELPED ME MAKE A FOLLOW UP APPOINTMENT FOR PT ON 07/31/2022 AT 0920. CALLED PATIENTS CELL BUT LINE SAID IT WAS OUT OF SERVICE, SO I CALLED SON EDMUND WHO ALSO DIDN'T ANSWER BUT I WAS ABLE TO LEAVE A VOICE MAIL REGARDING THE ABOVE INFORMATION.
== END 2022-07-24 13:00 | disposition home or self-care (01) | DRG 203 ==
LOC: MED 00:39 → MMU 05:57 → OBSVTOIN 16:07
PROVIDERS: ADMIT Student in an Organized Health Care Education/Training Program; ATTEND Student in an Organized Health Care Education/Training Program
DX: M94.0 Chondrocostal junction syndrome [Tietze] (principal); I50.30 Unspecified diastolic (congestive) heart failure; I11.0 Hypertensive heart disease with heart failure; Z20.822 Contact with and (suspected) exposure to COVID-19; Z79.82 Long term (current) use of aspirin
CPT/HCPCS: 36415; 71045; 76705; 80053; 83735; 83880; 84484; 85025; 87081; 93005; 96374; 96376; 99285; J1644; J2270; Q0092

== ENCOUNTER 2022-08-28 18:42 | Emergency (ER) | payer OTHER ==
[~2022-08-28] VITALS: Ht 152.4 cm; Wt 81.2 kg
[~2022-08-28 18:42] MED LIST changes: +ASPI-1822 PO; +ATOR20TA40 PO; +CLON0.5T4 PO; -IBUP-2213 PO; -KEFSUS PO; +SENN-74 PO
[2022-08-28 18:48] VITALS: BP 120/79
[2022-08-28] MEDS ORDERED: CYCL-711 PO (19:10)
[2022-08-28] MEDS ORDERED: IBUP-2213 PO (19:10)
[2022-08-28] MEDS ORDERED: PRED20TA5 PO (19:10)
[2022-08-28 19:25] VITALS: BP 120/79
--- NOTE | 2022-08-28 19:25 | NUR ---
d/c by PA [facility]. prescribed flexeril, ibuprofen, and deltasone.
== END 2022-08-28 19:25 | disposition home or self-care (01) ==
LOC: MED 18:42
DX: M54.10 Radiculopathy, site unspecified (principal); L25.0 Unspecified contact dermatitis due to cosmetics; I10 Essential (primary) hypertension; Z79.899 Other long term (current) drug therapy; Z79.1 Long term (current) use of non-steroidal anti-inflammatories (NSAID); Z79.82 Long term (current) use of aspirin
CPT/HCPCS: 99283

== ENCOUNTER 2022-08-30 09:15 | Emergency (ER) | payer OTHER ==
[~2022-08-30] VITALS: Ht 157.5 cm; Wt 92.5 kg
[~2022-08-30 09:15] MED LIST changes: +CYCL-711 PO; +IBUP-2213 PO; +PRED20TA5 PO
[2022-08-30 09:27] VITALS: BP 120/59
--- NOTE | 2022-08-30 10:29 | NUR ---
PT C/O VAGINA PAIN, BURNING, ITCHING X 1 WK AFTER HAVING SEXUAL ACTIVITY WITH HER . NO DISCHARGE OR BURNING WITH URINATION. SAFETY MAINTAINED
[2022-08-30 10:52] LABS: APPEARANCE,URINE CLEAR (CLEAR); BILIRUBIN,URINE NEGATIVE (NEGATIVE); BLOOD, URINE NEGATIVE (NEGATIVE); COLOR,URINE YELLOW (YELLOW); LEUKOCYTE ESTERASE ,URINE NEGATIVE (NEGATIVE); NITRITE, URINE NEGATIVE (NEGATIVE); UGLUCOSE NEGATIVE (NEGATIVE)
[2022-08-30 11:57] VITALS: BP 116/63
--- NOTE | 2022-08-30 11:59 | NUR ---
Patient discharged with v/s stable. Written and verbal after care instructions given. Patient verbalized understanding. Ambulatory with steady gait. All questions addressed prior to discharge. Advised to follow up with PMD.
== END 2022-08-30 11:57 | disposition home or self-care (01) ==
LOC: MED 09:15
DX: R10.2 Pelvic and perineal pain (principal); R30.0 Dysuria; I10 Essential (primary) hypertension; Z79.899 Other long term (current) drug therapy; Z79.82 Long term (current) use of aspirin; Z79.1 Long term (current) use of non-steroidal anti-inflammatories (NSAID)
CPT/HCPCS: 81003; 87491; 99283; 99284

== ENCOUNTER 2022-10-08 00:45 | Emergency (ER) | payer OTHER ==
[~2022-10-08] VITALS: Ht 154.9 cm; Wt 87.5 kg
[2022-10-08 00:45] VITALS: BP 129/80
--- NOTE | 2022-10-08 00:52 | NUR ---
JUSTIN HENSON PT PLACED IN BED 12. Addendum: 10/08/22 at 0053 by [facility] JUSTIN COSTA. PLACED IN BED 12 WITH DAUGHTER.
--- NOTE | 2022-10-08 01:11 | NUR ---
Patient being evaluated by physician at bedside.
[2022-10-08 01:40] LABS: BASOPHILS # (AUTO) 0.1 K/uL (0.00-0.22); BASOPHILS % (AUTO) 0.8 % (0.0-2.0); EOSINOPHILS # (AUTO) 0.1 K/uL (0-0.4); EOSINOPHILS % (AUTO) 0.9 % (0.0-4.0); HEMOGLOBIN 13.8 g/dL (12.0-16.0); LYMPHOCYTES # (AUTO) 1.9 K/uL (2.5-16.5); LYMPHOCYTES % (AUTO) 24.7 % (20.5-51.1); MEAN CORPUSCULAR HEMOGLOBIN 32 pg (27-31); MEAN CORPUSCULAR HGB CONC 35 g/dL (33-37); MEAN CORPUSCULAR VOLUME 89.9 fL (80-94); MONOCYTES # (AUTO) 0.6 K/uL (0.8-1.0); MONOCYTES % (AUTO) 7.3 % (1.7-9.3); NEUTROPHILS % (AUTO) 66.3 % (42.2-75.2); PLATELET COUNT (AUTO) 188 K/uL (140-450); RED BLOOD CELL COUNT(AUTO) 4.34 MIL/uL (4.20-5.40); RED CELL DISTRIBUTION WIDTH 12.5 % (11.6-13.7); WHITE BLOOD COUNT (AUTO) 7.5 K/uL (4.8-10.8)
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
[2022-10-08 02:04] LABS: ALBUMIN 3.9 g/dL (3.4-5.0); ANION GAP 12.8 (8-16); ASPARTATE AMINOTRANSFERASE 30 U/L (15-37); CARBON DIOXIDE 26.3 mmol/L (21-32); CHLORIDE 105 mmol/L (98-107); CREATININE 0.8 mg/dL (0.6-1.3); GFR ARICAN-AMERICAN 100 mL/min (>90); GLUCOSE 127 mg/dL (74-106); LIPASE 280 U/L (73-393); POTASSIUM 3.1 mmol/L (3.5-5.1); SODIUM SERUM 141 mmol/L (136-145); TOTAL BILIRUBIN 0.4 mg/dL (0.0-1.0); UREA NITROGEN, BLOOD 20 mg/dL (7-18)
[2022-10-08] MEDS ORDERED: MORPHINE SULFATE 4 MG/ML SYR IVP ONE ×2 (02:05→07:00)
[2022-10-08] MEDS ORDERED: ONDANSETRON 4 MG/2 ML VIAL IVP ONE ×2 (02:05→07:00)
[2022-10-08] MEDS ORDERED: POTASSIUM CHLORIDE 10 MEQ TABER PO ONE (05:25)
[2022-10-08] MEDS ORDERED: LORazepam 1 MG TAB PO ONE (05:50)
[2022-10-08] MEDS ORDERED: IBUP-2213 PO (05:52)
[2022-10-08] MEDS ORDERED: METH-1681 PO (05:52)
[2022-10-08] MEDS ORDERED: LID5T TP (05:52)
[2022-10-08 06:41] VITALS: BP 118/69
[2022-10-08] MEDS ORDERED: ACETAMINOPHEN EXTRA STRENGTH 500 MG TAB PO ONE (07:00)
[2022-10-08] MEDS ORDERED: BENZOCAINE/MENTHOL 1 LOZ MM PRN (07:00)
[2022-10-08] MEDS ORDERED: LIDOCAINE 5% 1 EA PATCH TP SCH (07:00)
--- NOTE | 2022-10-08 07:58 | NUR ---
Patient discharged with v/s stable. Written and verbal after care instructions given and explained. Patient alert, oriented and verbalized understanding of instructions. Ambulatory with steady gait. All questions addressed prior to discharge. ID band removed. Patient advised to follow up with PMD. Rx of motrin, lidoderm 5% patch, robaxin given. Patient educated on indication of medication including possible reaction and side effects. Opportunity to ask questions provided and answered.
== END 2022-10-08 07:58 | disposition home or self-care (01) ==
LOC: MED 00:45
DX: S20.219A Contusion of unspecified front wall of thorax, initial encounter (principal); S69.91XA Unspecified injury of right wrist, hand and finger(s), initial encounter; S09.90XA Unspecified injury of head, initial encounter; M25.561 Pain in right knee; M25.562 Pain in left knee; I10 Essential (primary) hypertension; Z79.899 Other long term (current) drug therapy; V89.2XXA Person injured in unspecified motor-vehicle accident, traffic, initial encounter; Y93.89 Activity, other specified; Y92.89 Other specified places as the place of occurrence of the external cause; Y99.8 Other external cause status
CPT/HCPCS: 36415; 70450; 71045; 72125; 73130; 73562; 74177; 80053; 81025; 83690; 84484; 85025; 96374; 96375; 96376; 99285; J2270; J2405; Q9967

== ENCOUNTER 2022-11-04 14:29 | Emergency (ER) | payer OTHER ==
[~2022-11-04] VITALS: Ht 157.5 cm; Wt 90.7 kg
[~2022-11-04 14:29] MED LIST changes: +LID5T TP; +METH-1681 PO
[2022-11-04 14:58] VITALS: BP 133/93; PULSE 67; RESP 18; TEMP 97.6; O2SAT 98
--- NOTE | 2022-11-04 15:00 | NUR ---
PATIENT 42/F PRESENTS TO ED WITH . PT STATES SHE HAS HEAD PAIN THREE DAYS, THROAT PAIN 1 DAY, AND RIGHT SIDE ABD 1 DAY PAIN WITH VOMITING. DENIES DIARREHA;PT STATES SHE HAS SOME DISCOLORATION ON HAND. SKIN IS PINK/WARM/DRY; AAOX4 WITH EVEN AND STEADY GAIT; LUNGS CLEAR BL; HR EVEN AND REGULAR; PT DENIES ANY FEVER, CP, SOB, OR COUGH AT THIS TIME; PATIENT STATES PAIN OF 8/10 AT THIS TIME; VSS; PATIENT POSITIONED FOR COMFORT; HOB ELEVATED; BEDRAILS UP X2; BED DOWN. CALL LIGHT WITH IN REACH. MADE AWARE OF PT STATUS. PMHX HTN INSOMNIA NKNA
[2022-11-04 15:45] LABS: BASOPHILS % (AUTO) 0.3 % (0.0-2.0); EOSINOPHILS # (AUTO) 0.1 K/uL (0-0.4); EOSINOPHILS % (AUTO) 0.9 % (0.0-4.0); HEMATOCRIT 39.9 % (36-48); HEMOGLOBIN 14.2 g/dL (12.0-16.0); LYMPHOCYTES # (AUTO) 1.6 K/uL (2.5-16.5); LYMPHOCYTES % (AUTO) 27.3 % (20.5-51.1); MEAN CORPUSCULAR HEMOGLOBIN 32 pg (27-31); MEAN CORPUSCULAR HGB CONC 36 g/dL (33-37); MEAN CORPUSCULAR VOLUME 89.4 fL (80-94); MONOCYTES # (AUTO) 0.4 K/uL (0.8-1.0); MONOCYTES % (AUTO) 6.8 % (1.7-9.3); NEUTROPHILS # (AUTO) 3.7 K/uL (1.8-7.7); NEUTROPHILS % (AUTO) 64.7 % (42.2-75.2); PLATELET COUNT (AUTO) 210 K/uL (140-450); RED BLOOD CELL COUNT(AUTO) 4.46 MIL/uL (4.20-5.40); RED CELL DISTRIBUTION WIDTH 12.3 % (11.6-13.7); WHITE BLOOD COUNT (AUTO) 5.8 K/uL (4.8-10.8)
[2022-11-04 16:05] LABS: ALBUMIN 3.9 g/dL (3.4-5.0); ANION GAP 12.9 (8-16); CARBON DIOXIDE 26.7 mmol/L (21-32); CREATININE 0.6 mg/dL (0.6-1.3); POTASSIUM 3.6 mmol/L (3.5-5.1); TOTAL BILIRUBIN 0.7 mg/dL (0.0-1.0)
[2022-11-04] MEDS ORDERED: NACL 0.9% 1,000 ML IV ONE ×2 (16:05→16:20)
[2022-11-04] MEDS ORDERED: ONDANSETRON 4 MG/2 ML VIAL IVP ONE (16:20)
[2022-11-04 16:29] VITALS: O2SAT 67
[2022-11-04] MEDS ORDERED: MECLIZINE 25 MG TAB PO ONE (16:30)
--- NOTE | 2022-11-04 16:41 | NUR ---
PT HAS BEEN TAKEN TO CT.
[2022-11-04 18:33] LABS: APPEARANCE,URINE CLEAR (CLEAR); BILIRUBIN,URINE NEGATIVE (NEGATIVE); BLOOD, URINE NEGATIVE (NEGATIVE); COLOR,URINE YELLOW (YELLOW); LEUKOCYTE ESTERASE ,URINE NEGATIVE (NEGATIVE); NITRITE, URINE NEGATIVE (NEGATIVE); PH,URINE 6.5 (5.0-9.0); UGLUCOSE NEGATIVE (NEGATIVE)
[2022-11-04] MEDS ORDERED: MECL-303 PO (18:48)
[2022-11-04] MEDS ORDERED: ONDA-188 SL (18:48)
--- NOTE | 2022-11-04 18:51 | NUR ---
The patient's care was reviewed and supervised by SHIMON MCCLELLAND RN.
[2022-11-04 19:44] VITALS: BP 121/82; PULSE 98; RESP 18; TEMP 97.6; O2SAT 98
== END 2022-11-04 19:35 | disposition home or self-care (01) ==
LOC: MED 14:29
DX: R42 Dizziness and giddiness (principal); R11.2 Nausea with vomiting, unspecified; R51.9 Headache, unspecified; I10 Essential (primary) hypertension; Z79.899 Other long term (current) drug therapy
CPT/HCPCS: 36415; 70450; 80053; 81003; 81025; 83690; 84703; 85025; 96361; 96374; 99285; J2405; J7030; J8597

== ENCOUNTER 2023-01-19 22:12 | Emergency (ER) | payer OTHER ==
[~2023-01-19] VITALS: Ht 157.5 cm; Wt 78.0 kg
[2023-01-19 22:40] VITALS: BP 140/90; PULSE 68; RESP 17; TEMP 98; O2SAT 98
[2023-01-20] MEDS ORDERED: LORazepam 2 MG/ML VIAL IM ONE (00:30)
[2023-01-20 00:33] LABS: BASOPHILS % (AUTO) 0.3 % (0.0-2.0); EOSINOPHILS # (AUTO) 0.1 K/uL (0-0.4); EOSINOPHILS % (AUTO) 1.3 % (0.0-4.0); HEMATOCRIT 37.3 % (36-48); HEMOGLOBIN 13.1 g/dL (12.0-16.0); LYMPHOCYTES # (AUTO) 3.4 K/uL (2.5-16.5); LYMPHOCYTES % (AUTO) 49.4 % (20.5-51.1); MEAN CORPUSCULAR HEMOGLOBIN 32 pg (27-31); MEAN CORPUSCULAR HGB CONC 35 g/dL (33-37); MEAN CORPUSCULAR VOLUME 90.6 fL (80-94); MONOCYTES # (AUTO) 0.5 K/uL (0.8-1.0); MONOCYTES % (AUTO) 7.2 % (1.7-9.3); NEUTROPHILS # (AUTO) 2.8 K/uL (1.8-7.7); NEUTROPHILS % (AUTO) 41.8 % (42.2-75.2); PLATELET COUNT (AUTO) 191 K/uL (140-450); RED BLOOD CELL COUNT(AUTO) 4.12 MIL/uL (4.20-5.40); RED CELL DISTRIBUTION WIDTH 12.4 % (11.6-13.7); WHITE BLOOD COUNT (AUTO) 6.8 K/uL (4.8-10.8)
[2023-01-20 00:51] LABS: ALANINE AMINOTRANSFERASE 27 U/L (12-78); ALBUMIN 3.7 g/dL (3.4-5.0); ALKALINE PHOSPHATASE 59 U/L (50-136); ANION GAP 14.6 (8-16); ASPARTATE AMINOTRANSFERASE 14 U/L (15-37); CALCIUM 8.9 mg/dL (8.5-10.1); CARBON DIOXIDE 25.6 mmol/L (21-32); CHLORIDE 104 mmol/L (98-107); CREATININE 0.7 mg/dL (0.6-1.3); GFR ARICAN-AMERICAN 117 mL/min (>90); GFR NON ARICAN-AMERICAN 97 mL/min (>90); GLUCOSE 95 mg/dL (74-106); LIPASE 456 U/L (73-393); POTASSIUM 3.2 mmol/L (3.5-5.1); SODIUM SERUM 141 mmol/L (136-145); TOTAL BILIRUBIN 0.7 mg/dL (0.0-1.0); TOTAL PROTEIN, SERUM 7.3 g/dL (6.4-8.2); UREA NITROGEN, BLOOD 21 mg/dL (7-18)
[2023-01-20] MEDS ORDERED: POTASSIUM CHLORIDE 10 MEQ TABER PO ONE (01:25)
[2023-01-20] MEDS ORDERED: ATA25 PO (01:32)
[2023-01-20 01:46] VITALS: BP 136/83; PULSE 53; RESP 18; TEMP 98; O2SAT 95
== END 2023-01-20 01:46 | disposition home or self-care (01) ==
LOC: MED 22:12
DX: F41.9 Anxiety disorder, unspecified (principal); R07.9 Chest pain, unspecified; R51.9 Headache, unspecified; I10 Essential (primary) hypertension; Z79.899 Other long term (current) drug therapy
CPT/HCPCS: 36415; 71045; 80053; 83690; 84484; 85025; 93005; 96372; 99285; J2060; Q0092

== ENCOUNTER 2023-05-28 14:12 | Emergency (ER) | payer OTHER ==
[~2023-05-28] VITALS: Ht 152.4 cm; Wt 86.6 kg
[~2023-05-28 14:12] MED LIST changes: +ATA25 PO
[2023-05-28 14:47] VITALS: BP 150/87; PULSE 70; RESP 18; TEMP 97.5; O2SAT 98
[2023-05-28] MEDS ORDERED: IBUPROFEN 600 MG TAB PO ONE (16:30)
[2023-05-28] MEDS ORDERED: METOCLOPRAMIDE 10 MG TAB PO ONE (16:30)
[2023-05-28 17:16] LABS: BASOPHILS % (AUTO) 0.7 % (0.0-2.0); EOSINOPHILS # (AUTO) 0.1 K/uL (0-0.4); EOSINOPHILS % (AUTO) 1.2 % (0.0-4.0); HEMATOCRIT 39.7 % (36-48); HEMOGLOBIN 14.4 g/dL (12.0-16.0); LYMPHOCYTES # (AUTO) 2.1 K/uL (2.5-16.5); LYMPHOCYTES % (AUTO) 36.6 % (20.5-51.1); MEAN CORPUSCULAR HEMOGLOBIN 32 pg (27-31); MEAN CORPUSCULAR HGB CONC 36 g/dL (33-37); MEAN CORPUSCULAR VOLUME 89.3 fL (80-94); MONOCYTES # (AUTO) 0.5 K/uL (0.8-1.0); NEUTROPHILS % (AUTO) 53.5 % (42.2-75.2); PLATELET COUNT (AUTO) 226 K/uL (140-450); RED BLOOD CELL COUNT(AUTO) 4.44 MIL/uL (4.20-5.40); RED CELL DISTRIBUTION WIDTH 12.6 % (11.6-13.7); WHITE BLOOD COUNT (AUTO) 5.6 K/uL (4.8-10.8)
[2023-05-28 17:46] LABS: ANION GAP 13.6 (8-16); CALCIUM 9.2 mg/dL (8.5-10.1); CARBON DIOXIDE 28.1 mmol/L (21-32); CREATININE 0.7 mg/dL (0.6-1.3); POTASSIUM 3.7 mmol/L (3.5-5.1)
[2023-05-28 17:46] LABS: APPEARANCE,URINE CLEAR (CLEAR); BILIRUBIN,URINE NEGATIVE (NEGATIVE); BLOOD, URINE NEGATIVE (NEGATIVE); COLOR,URINE YELLOW (YELLOW); LEUKOCYTE ESTERASE ,URINE NEGATIVE (NEGATIVE); NITRITE, URINE NEGATIVE (NEGATIVE); PH,URINE 6.5 (5.0-9.0); PROTEIN,URINE NEGATIVE (NEGATIVE); UGLUCOSE NEGATIVE (NEGATIVE); UROBILINOGEN,URINE 0.2 EU/dL (0.2 - 1)
[2023-05-28] MEDS ORDERED: LORA1T1237 PO (18:39)
[2023-05-28] MEDS ORDERED: IBUP-2213 PO (18:39)
[2023-05-28] MEDS ORDERED: METO10TA10 PO (18:39)
[2023-05-28] MEDS ORDERED: ZOLP5TAB1 PO (18:39)
[2023-05-28 18:58] VITALS: BP 135/80; PULSE 88; RESP 18; TEMP 98; O2SAT 99
== END 2023-05-28 18:58 | disposition home or self-care (01) ==
LOC: MED 14:12
DX: J32.9 Chronic sinusitis, unspecified (principal); H92.01 Otalgia, right ear; G47.00 Insomnia, unspecified; I10 Essential (primary) hypertension; F41.9 Anxiety disorder, unspecified; Z79.899 Other long term (current) drug therapy; Z79.1 Long term (current) use of non-steroidal anti-inflammatories (NSAID); Z79.82 Long term (current) use of aspirin
CPT/HCPCS: 36415; 80048; 81003; 81025; 85025; 99283; J8597

== ENCOUNTER 2023-06-07 09:56 | Emergency (ER) | payer OTHER ==
[~2023-06-07] VITALS: Ht 152.4 cm; Wt 80.7 kg
[~2023-06-07 09:56] MED LIST changes: +LORA1T1237 PO; +METO10TA10 PO; +ZOLP5TAB1 PO
[2023-06-07 09:57] VITALS: BP 115/75; PULSE 64; RESP 16; TEMP 97.2; O2SAT 98
[2023-06-07] MEDS: ONDANSETRON 4 MG/2 ML VIAL IVP ONE (11:03)
[2023-06-07] MEDS: KETOROLAC 30 MG/ML VIAL IVP ONE (11:06)
[2023-06-07 12:07] LABS: BASOPHILS % (AUTO) 0.6 % (0.0-2.0); EOSINOPHILS # (AUTO) 0.1 K/uL (0-0.4); EOSINOPHILS % (AUTO) 1.3 % (0.0-4.0); HEMATOCRIT 39.9 % (36-48); HEMOGLOBIN 14.3 g/dL (12.0-16.0); LYMPHOCYTES # (AUTO) 1.9 K/uL (2.5-16.5); LYMPHOCYTES % (AUTO) 40.5 % (20.5-51.1); MEAN CORPUSCULAR HEMOGLOBIN 32 pg (27-31); MEAN CORPUSCULAR HGB CONC 36 g/dL (33-37); MEAN CORPUSCULAR VOLUME 89.6 fL (80-94); MONOCYTES # (AUTO) 0.3 K/uL (0.8-1.0); MONOCYTES % (AUTO) 7.2 % (1.7-9.3); NEUTROPHILS # (AUTO) 2.4 K/uL (1.8-7.7); NEUTROPHILS % (AUTO) 50.4 % (42.2-75.2); PLATELET COUNT (AUTO) 178 K/uL (140-450); RED BLOOD CELL COUNT(AUTO) 4.45 MIL/uL (4.20-5.40); RED CELL DISTRIBUTION WIDTH 12.7 % (11.6-13.7); WHITE BLOOD COUNT (AUTO) 4.7 K/uL (4.8-10.8)
[2023-06-07 12:21] VITALS: O2SAT 98
[2023-06-07 12:27] LABS: APPEARANCE,URINE CLEAR (CLEAR); BILIRUBIN,URINE NEGATIVE (NEGATIVE); BLOOD, URINE NEGATIVE (NEGATIVE); COLOR,URINE YELLOW (YELLOW); LEUKOCYTE ESTERASE ,URINE NEGATIVE (NEGATIVE); NITRITE, URINE NEGATIVE (NEGATIVE); PH,URINE 7.5 (5.0-9.0); PROTEIN,URINE NEGATIVE (NEGATIVE); UGLUCOSE NEGATIVE (NEGATIVE); UROBILINOGEN,URINE 0.2 EU/dL (0.2 - 1)
[2023-06-07 12:35] LABS: ALBUMIN 3.4 g/dL (3.4-5.0); BILIRUBIN,DIRECT 0.1 mg/dL (0.0-0.3); TOTAL BILIRUBIN 0.9 mg/dL (0.0-1.0); TOTAL PROTEIN, SERUM 8.7 g/dL (6.4-8.2)
[2023-06-07 13:11] VITALS: BP 121/75; PULSE 57; RESP 18; O2SAT 98
[2023-06-07 13:11] LABS: ANION GAP 12.4 (8-16); CALCIUM 8.7 mg/dL (8.5-10.1); CARBON DIOXIDE 28.2 mmol/L (21-32); CREATININE 0.6 mg/dL (0.6-1.3); POTASSIUM 3.6 mmol/L (3.5-5.1)
[2023-06-07] MEDS ORDERED: IBUP-2213 PO (13:42)
== END 2023-06-07 14:09 | disposition home or self-care (01) ==
LOC: MED 09:56
DX: R10.31 Right lower quadrant pain (principal); R11.0 Nausea; Z79.899 Other long term (current) drug therapy
CPT/HCPCS: 36415; 74176; 80048; 80076; 81003; 81025; 83690; 84484; 84703; 85025; 93005; 96374; 96375; 99285; J1885; J2405

== ENCOUNTER 2023-07-19 03:54 | Emergency (ER) | payer OTHER ==
[~2023-07-19] VITALS: Ht 152.4 cm; Wt 73.5 kg
[2023-07-19 04:03] VITALS: BP 128/82; PULSE 68; TEMP 97.4
[2023-07-19 04:20] VITALS: O2SAT 98
[2023-07-19 04:56] VITALS: BP 128/82; PULSE 68; TEMP 97.4
== END 2023-07-19 05:50 | disposition home or self-care (01) ==
LOC: MED 03:54
DX: J02.8 Acute pharyngitis due to other specified organisms (principal); B97.89 Other viral agents as the cause of diseases classified elsewhere; I10 Essential (primary) hypertension; Z79.899 Other long term (current) drug therapy
CPT/HCPCS: 99281

== ENCOUNTER 2023-07-21 19:58 | Emergency (ER) | payer OTHER ==
[~2023-07-21] VITALS: Ht 157.5 cm; Wt 77.1 kg
[2023-07-21 20:30] VITALS: BP 150/90; PULSE 72; RESP 16; TEMP 97.8; O2SAT 97
[2023-07-21 22:10] VITALS: BP 150/90; PULSE 72; RESP 16; TEMP 97.8; O2SAT 97
== END 2023-07-21 22:10 | disposition home or self-care (01) ==
LOC: MED 19:58
DX: J32.9 Chronic sinusitis, unspecified (principal); I10 Essential (primary) hypertension; Z79.899 Other long term (current) drug therapy
CPT/HCPCS: 99282

== ENCOUNTER 2023-08-27 17:58 | Emergency (ER) | payer OTHER ==
[~2023-08-27] VITALS: Ht 152.4 cm; Wt 93.4 kg
[2023-08-27 18:06] VITALS: BP 150/94; PULSE 72; RESP 16; TEMP 97.5; O2SAT 100
[2023-08-27] MEDS: KETOROLAC 30 MG/ML VIAL IM ONE (18:52)
[2023-08-27 19:00] LABS: APPEARANCE,URINE CLEAR (CLEAR); BILIRUBIN,URINE NEGATIVE (NEGATIVE); BLOOD, URINE TRACE-I (NEGATIVE); COLOR,URINE YELLOW (YELLOW); LEUKOCYTE ESTERASE ,URINE NEGATIVE (NEGATIVE); NITRITE, URINE NEGATIVE (NEGATIVE); PROTEIN,URINE NEGATIVE (NEGATIVE); UGLUCOSE NEGATIVE (NEGATIVE)
[2023-08-27 19:10] LABS: BASOPHILS % (AUTO) 0.4 % (0.0-2.0); EOSINOPHILS # (AUTO) 0.1 K/uL (0-0.4); EOSINOPHILS % (AUTO) 2.4 % (0.0-4.0); HEMATOCRIT 38.4 % (36-48); HEMOGLOBIN 13.9 g/dL (12.0-16.0); LYMPHOCYTES % (AUTO) 33.6 % (20.5-51.1); MEAN CORPUSCULAR HEMOGLOBIN 33 pg (27-31); MEAN CORPUSCULAR HGB CONC 36 g/dL (33-37); MEAN CORPUSCULAR VOLUME 89.8 fL (80-94); MONOCYTES # (AUTO) 0.5 K/uL (0.8-1.0); MONOCYTES % (AUTO) 7.9 % (1.7-9.3); NEUTROPHILS # (AUTO) 3.3 K/uL (1.8-7.7); NEUTROPHILS % (AUTO) 55.7 % (42.2-75.2); PLATELET COUNT (AUTO) 194 K/uL (140-450); RED BLOOD CELL COUNT(AUTO) 4.28 MIL/uL (4.20-5.40); RED CELL DISTRIBUTION WIDTH 12.4 % (11.6-13.7); WHITE BLOOD COUNT (AUTO) 5.9 K/uL (4.8-10.8)
[2023-08-27 19:11] LABS: BACTERIA,URINE None Seen /HPF (None Seen); RBC,URINE 0-5 /HPF (0-5); SQUAMOUS EPITHELIAL CELL,UR 0-3 (FEW) /LPF (0-3 (FEW)); WBC,URINE 0-5 /HPF (0-5)
[2023-08-27 19:34] LABS: ANION GAP 11.7 (8-16); CALCIUM 8.6 mg/dL (8.5-10.1); CARBON DIOXIDE 27.6 mmol/L (21-32); CREATININE 0.7 mg/dL (0.6-1.3); POTASSIUM 3.3 mmol/L (3.5-5.1)
[2023-08-27 19:35] LABS: FREE T4 (FREE THYROXINE) 0.71 ng/dL (0.76-1.46); THYROID STIMULATING HORMONE 3.45 uIU/mL (0.34-3.74)
[2023-08-27] MEDS ORDERED: NAPR-1704 PO (19:52)
[2023-08-27] MEDS ORDERED: MECL-303 PO (19:52)
[2023-08-27] MEDS: POTASSIUM CHLORIDE 10 MEQ TABER PO ONE (19:54)
== END 2023-08-27 20:05 | disposition home or self-care (01) ==
LOC: MED 17:58
DX: R51.9 Headache, unspecified (principal); R42 Dizziness and giddiness; E87.6 Hypokalemia; I10 Essential (primary) hypertension; Z79.899 Other long term (current) drug therapy
CPT/HCPCS: 36415; 80048; 81001; 83690; 84439; 84443; 85025; 96372; 99283; J1885

== ENCOUNTER 2023-08-30 08:04 | Emergency (ER) | payer OTHER ==
[~2023-08-30] VITALS: Ht 152.4 cm; Wt 93.6 kg
[~2023-08-30 08:04] MED LIST changes: +NAPR-1704 PO
[2023-08-30 08:06] VITALS: BP 154/76; PULSE 66; RESP 68; TEMP 97.7; O2SAT 98
[2023-08-30] MEDS: diphenhydrAMINE 50 MG/ML VIAL IVP ONE (08:56)
[2023-08-30 08:57] LABS: BASOPHILS % (AUTO) 0.4 % (0.0-2.0); EOSINOPHILS # (AUTO) 0.1 K/uL (0-0.4); EOSINOPHILS % (AUTO) 2.3 % (0.0-4.0); HEMATOCRIT 39.9 % (36-48); HEMOGLOBIN 13.8 g/dL (12.0-16.0); LYMPHOCYTES # (AUTO) 1.9 K/uL (2.5-16.5); LYMPHOCYTES % (AUTO) 35.5 % (20.5-51.1); MEAN CORPUSCULAR HEMOGLOBIN 32 pg (27-31); MEAN CORPUSCULAR HGB CONC 35 g/dL (33-37); MONOCYTES # (AUTO) 0.4 K/uL (0.8-1.0); MONOCYTES % (AUTO) 7.7 % (1.7-9.3); NEUTROPHILS # (AUTO) 2.9 K/uL (1.8-7.7); NEUTROPHILS % (AUTO) 54.1 % (42.2-75.2); PLATELET COUNT (AUTO) 195 K/uL (140-450); RED BLOOD CELL COUNT(AUTO) 4.39 MIL/uL (4.20-5.40); RED CELL DISTRIBUTION WIDTH 12.3 % (11.6-13.7); WHITE BLOOD COUNT (AUTO) 5.3 K/uL (4.8-10.8)
[2023-08-30] MEDS: PROCHLORPERAZINE 10 MG/2 ML VIAL IVP ONE (08:58)
[2023-08-30] MEDS: KETOROLAC 30 MG/ML VIAL IVP ONE (08:59)
[2023-08-30] MEDS: NACL 0.9% 1,000 ML IV ONE (09:03)
[2023-08-30 09:09] LABS: INR 0.9 (0.8-1.2); PARTIAL THROMBOPLASTIN TIME 27.8 secs (22-35.6); PROTHROMBIN TIME 9.4 secs (10.8-13.4)
[2023-08-30 09:17] LABS: ANION GAP 10.1 (8-16); CARBON DIOXIDE 29.6 mmol/L (21-32); CREATININE 0.7 mg/dL (0.6-1.3); POTASSIUM 3.7 mmol/L (3.5-5.1)
[2023-08-30 09:24] LABS: MAGNESIUM 2.4 mg/dL (1.8-2.4); PHOSPHORUS 3.4 mg/dL (2.5-4.9)
[2023-08-30] MEDS ORDERED: DICL20GE TP (10:45)
[2023-08-30 10:52] VITALS: BP 164/92; PULSE 74; RESP 18; TEMP 97.7; O2SAT 99
== END 2023-08-30 10:52 | disposition home or self-care (01) ==
LOC: MED 08:04
DX: R51.9 Headache, unspecified (principal); R42 Dizziness and giddiness; M47.892 Other spondylosis, cervical region; I10 Essential (primary) hypertension; Z79.899 Other long term (current) drug therapy
CPT/HCPCS: 36415; 70450; 70496; 70498; 71045; 80048; 81025; 83735; 84100; 84443; 84484; 85025; 85610; 85730; 93005; 96361; 96374; 96375; 99285; J0780; J1200; J1885; Q0092; Q9967; J7030

== ENCOUNTER 2023-09-25 11:18 | Emergency (ER) | payer OTHER ==
[~2023-09-25] VITALS: Ht 152.4 cm; Wt 93.4 kg
[~2023-09-25 11:18] MED LIST changes: +DICL20GE TP
[2023-09-25 11:28] VITALS: BP 143/77; PULSE 74; RESP 18; TEMP 97.1; O2SAT 97
[2023-09-25 11:42] VITALS: TEMP 97.1
[2023-09-25] MEDS: LORazepam 1 MG TAB PO ONE (12:17)
[2023-09-25 12:38] VITALS: BP 124/70; PULSE 64; RESP 16; O2SAT 97
== END 2023-09-25 12:53 | disposition home or self-care (01) ==
LOC: MED 11:18
DX: R42 Dizziness and giddiness (principal); F41.9 Anxiety disorder, unspecified; G47.00 Insomnia, unspecified; F43.9 Reaction to severe stress, unspecified; E03.9 Hypothyroidism, unspecified; I10 Essential (primary) hypertension; Z90.89 Acquired absence of other organs; Z79.1 Long term (current) use of non-steroidal anti-inflammatories (NSAID); Z79.82 Long term (current) use of aspirin; Z79.899 Other long term (current) drug therapy
CPT/HCPCS: 99283

== ENCOUNTER 2023-12-25 22:32 | Emergency (ER) | payer OTHER ==
[~2023-12-25] VITALS: Ht 152.4 cm; Wt 82.6 kg
[2023-12-25 22:47] VITALS: BP 135/76; PULSE 80; RESP 18; TEMP 207.3; TEMP 97.4; O2SAT 97
--- NOTE | 2023-12-25 22:54 | NUR ---
TO BED 11 FOLLOWING TRIAGE
[2023-12-25 23:00] VITALS: O2SAT 97
--- NOTE | 2023-12-25 23:15 | NUR ---
seenand examined by rafa , with orders and carried out.
--- NOTE | 2023-12-25 23:30 | NUR ---
medicated as per ERMS's order, tolerated well.
[2023-12-25] MEDS: KETOROLAC 30 MG/ML VIAL IM ONE (23:33)
[2023-12-25 23:41] LABS: BASOPHILS % (AUTO) 0.5 % (0.0-2.0); EOSINOPHILS # (AUTO) 0.1 K/uL (0-0.4); EOSINOPHILS % (AUTO) 1.6 % (0.0-4.0); HEMATOCRIT 39.1 % (36-48); HEMOGLOBIN 13.7 g/dL (12.0-16.0); LYMPHOCYTES # (AUTO) 2.2 K/uL (2.5-16.5); LYMPHOCYTES % (AUTO) 29.6 % (20.5-51.1); MEAN CORPUSCULAR HEMOGLOBIN 32 pg (27-31); MEAN CORPUSCULAR HGB CONC 35 g/dL (33-37); MEAN CORPUSCULAR VOLUME 90.4 fL (80-94); MONOCYTES # (AUTO) 0.6 K/uL (0.8-1.0); MONOCYTES % (AUTO) 8.4 % (1.7-9.3); NEUTROPHILS # (AUTO) 4.5 K/uL (1.8-7.7); NEUTROPHILS % (AUTO) 59.9 % (42.2-75.2); PLATELET COUNT (AUTO) 198 K/uL (140-450); RED BLOOD CELL COUNT(AUTO) 4.33 MIL/uL (4.20-5.40); RED CELL DISTRIBUTION WIDTH 12.5 % (11.6-13.7); WHITE BLOOD COUNT (AUTO) 7.5 K/uL (4.8-10.8)
[2023-12-25 23:44] LABS: APPEARANCE,URINE CLEAR (CLEAR); BILIRUBIN,URINE NEGATIVE (NEGATIVE); BLOOD, URINE TRACE-I (NEGATIVE); COLOR,URINE YELLOW (YELLOW); LEUKOCYTE ESTERASE ,URINE NEGATIVE (NEGATIVE); NITRITE, URINE NEGATIVE (NEGATIVE); PROTEIN,URINE NEGATIVE (NEGATIVE); UGLUCOSE NEGATIVE (NEGATIVE)
[2023-12-25 23:57] LABS: BACTERIA,URINE 10-30 (MOD) /HPF (None Seen); MUCUS,URINE 1+ /LPF (None Seen); SQUAMOUS EPITHELIAL CELL,UR 0-3 (FEW) /LPF (0-3 (FEW)); WBC,URINE 0-5 /HPF (0-5)
[2023-12-26 00:02] LABS: ANION GAP 11.4 (8-16); CALCIUM 8.9 mg/dL (8.5-10.1); CARBON DIOXIDE 26.9 mmol/L (21-32); CREATININE 0.7 mg/dL (0.6-1.3); POTASSIUM 3.3 mmol/L (3.5-5.1)
[2023-12-26 00:06] LABS: ALBUMIN 3.6 g/dL (3.4-5.0); BILIRUBIN,DIRECT 0.1 mg/dL (0.0-0.3); TOTAL BILIRUBIN 0.6 mg/dL (0.0-1.0); TOTAL PROTEIN, SERUM 7.9 g/dL (6.4-8.2)
[2023-12-26] MEDS ORDERED: CEPH-588 PO (00:19)
--- NOTE | 2023-12-26 00:28 | NUR ---
Written and verbal after care instructions given and explained. Patient verbalized understanding. Ambulatory with steady gait. All questions addressed prior to discharge. Advised to follow up with PMD.
== END 2023-12-26 00:28 | disposition home or self-care (01) ==
LOC: MED 22:32
DX: N39.0 Urinary tract infection, site not specified (principal); I10 Essential (primary) hypertension; Z79.899 Other long term (current) drug therapy
CPT/HCPCS: 36415; 80048; 80076; 81001; 81025; 83690; 85025; 87086; 96372; 99283; J1885

== ENCOUNTER 2024-02-06 11:59 | Emergency (ER) | payer OTHER ==
[~2024-02-06] VITALS: Ht 152.4 cm; Wt 96.7 kg
[~2024-02-06 11:59] MED LIST changes: +CEPH-588 PO
[2024-02-06 12:08] VITALS: BP 133/85; PULSE 83; RESP 16; TEMP 98; O2SAT 98
[2024-02-06 12:26] VITALS: BP 134/84; RESP 22; TEMP 98
[2024-02-06 12:31] VITALS: O2SAT 98
[2024-02-06 13:41] VITALS: PULSE 63; O2SAT 96
[2024-02-06 14:02] LABS: BASOPHILS % (AUTO) 0.3 % (0.0-2.0); EOSINOPHILS # (AUTO) 0.1 K/uL (0-0.4); EOSINOPHILS % (AUTO) 1.5 % (0.0-4.0); HEMATOCRIT 37.6 % (36-48); HEMOGLOBIN 13.3 g/dL (12.0-16.0); LYMPHOCYTES # (AUTO) 2.2 K/uL (2.5-16.5); LYMPHOCYTES % (AUTO) 37.1 % (20.5-51.1); MEAN CORPUSCULAR HEMOGLOBIN 32 pg (27-31); MEAN CORPUSCULAR HGB CONC 35 g/dL (33-37); MEAN CORPUSCULAR VOLUME 89.4 fL (80-94); MONOCYTES # (AUTO) 0.4 K/uL (0.8-1.0); MONOCYTES % (AUTO) 7.6 % (1.7-9.3); NEUTROPHILS # (AUTO) 3.1 K/uL (1.8-7.7); NEUTROPHILS % (AUTO) 53.5 % (42.2-75.2); PLATELET COUNT (AUTO) 194 K/uL (140-450); RED CELL DISTRIBUTION WIDTH 12.5 % (11.6-13.7); WHITE BLOOD COUNT (AUTO) 5.8 K/uL (4.8-10.8)
[2024-02-06 14:07] LABS: ANION GAP 13.2 (8-16); CALCIUM 8.9 mg/dL (8.5-10.1); CARBON DIOXIDE 26.9 mmol/L (21-32); CREATININE 0.7 mg/dL (0.6-1.3); POTASSIUM 3.1 mmol/L (3.5-5.1)
[2024-02-06 14:21] LABS: THYROID STIMULATING HORMONE 3.39 uIU/mL (0.34-3.74)
[2024-02-06] MEDS ORDERED: POTA10TA70 PO (14:42)
[2024-02-06] MEDS: POTASSIUM CHLORIDE 10 MEQ TABER PO ONE (14:49)
== END 2024-02-06 15:01 | disposition home or self-care (01) ==
LOC: MED 11:59
DX: R07.89 Other chest pain (principal); E87.6 Hypokalemia; I10 Essential (primary) hypertension; F41.9 Anxiety disorder, unspecified; Z86.39 Personal history of other endocrine, nutritional and metabolic disease; Z79.899 Other long term (current) drug therapy; Z79.82 Long term (current) use of aspirin
CPT/HCPCS: 36415; 71045; 80048; 83880; 84443; 84484; 85025; 93005; 99285